=== PATIENT | male | born 1995 | race Two or more races ===

== ENCOUNTER 2017-01-16 02:53 | Emergency (ER) | payer SELFPAY ==
[~2017-01-16] VITALS: Ht 188 cm; Wt 125.0 kg
[2017-01-16] MEDS ORDERED: IPRATROPIUM BROMIDE (0.02%) 0.5MG/2.5ML NEB HHN STA (03:28)
[2017-01-16] MEDS ORDERED: ALBUTEROL (0.083%) 2.5MG/3ML NEB HHN STA (03:28)
[2017-01-16] MEDS ORDERED: PREDNISONE 20MG TABLET PO STA (03:28)
[2017-01-16 05:10] VITALS: BP 132/78
== END 2017-01-16 05:10 | disposition home or self-care (01) ==
LOC: ER 03:16
DX: J45.901 Unspecified asthma with (acute) exacerbation (principal); Z90.49 Acquired absence of other specified parts of digestive tract
CPT/HCPCS: 71010; 94640; 99283; J7512; J7611